=== PATIENT | male | born 1970 | race Caucasian/White ===

== ENCOUNTER 2016-08-26 10:51 | Emergency (ER) | payer OTHER ==
[~2016-08-26] VITALS: Ht 180.3 cm; Wt 104.0 kg
[~2016-08-26 10:51] MED LIST: ADULT LOW DOSE81 M1 PO; BENADRYL ALLERG25 MG PO; EPIPEN ADU0.3 MG/0.3 IM; FLEXERIL10 MG PO; MOBIC7.5 MG PO; NAPROSYN500 MG PO; NEURONTIN600 MG PO; NOHOMEMEDS; NORCO 5/3251 TABLET PO; PEPCID20 MG PO; PERCOCET 5/31 TABLET PO; PREDNISONE10 M1 PO; PREDNISONE10 MG PO; ULTRAM50 MG PO; VICODIN 5-3001 EACH PO
[2016-08-26 11:51] VITALS: BP 176/107
[2016-08-26] MEDS ORDERED: LISINOPRIL10 MG PO (13:45)
[2016-08-26] MEDS ORDERED: MOTRIN800 MG PO (13:46)
== END 2016-08-26 14:09 | disposition home or self-care (01) ==
LOC: EME 10:51
DX: L91.8 Other hypertrophic disorders of the skin (principal)
CPT/HCPCS: 99281; 99284

== ENCOUNTER → 2016-09-02 | Outpatient (CLI) | payer OTHER ==
[~2016-09-02] MED LIST changes: +LISINOPRIL10 MG PO; +MOTRIN800 MG PO
== END | disposition home or self-care (01) ==
LOC: AMB 09:50
PROC: 0HB0XZZ Excision of Scalp Skin, External Approach (ICD-10-PCS; principal; 2016-09-02)
DX: D22.4 Melanocytic nevi of scalp and neck (principal)
CPT/HCPCS: 88305

== ENCOUNTER 2016-12-15 10:42 | Emergency (ER) | payer OTHER ==
[~2016-12-15] VITALS: Ht 167.6 cm; Wt 102.5 kg
[2016-12-15] MEDS ORDERED: MEDROL DOSEPAK4 MG PO (11:24)
[2016-12-15] MEDS ORDERED: ZANTAC150 MG PO (11:24)
[2016-12-15] MEDS ORDERED: BENADRYL25 MG PO (11:24)
[2016-12-15 11:40] VITALS: BP 155/101
== END 2016-12-15 11:41 | disposition home or self-care (01) ==
LOC: EME 10:42
DX: T63.441A Toxic effect of venom of bees, accidental (unintentional), initial encounter (principal); R11.2 Nausea with vomiting, unspecified; I10 Essential (primary) hypertension
CPT/HCPCS: 99281; 99284; J7512

== ENCOUNTER 2017-05-31 15:42 | Emergency (ER) | payer OTHER ==
[~2017-05-31] VITALS: Ht 180.3 cm; Wt 100.9 kg
[~2017-05-31 15:42] MED LIST changes: +BENADRYL25 MG PO; +MEDROL DOSEPAK4 MG PO; +ZANTAC150 MG PO
[2017-05-31 16:37] LABS: HEMATOCRIT 44.4 % (38.0-50.0); MCH 26.9 PG (29.0-34.0); MCHC 33.1 G/DL (30.0-36.0); MCV 81.2 FL (86-99); MEAN PLAT.VOLUME 10.3 uM^3 (9.0-12.4); PLATELET COUNT 215 K/uL (156-360); RBC DIS.WIDTH-CV 12.7 % (11.8-14.6); RBC DIS.WIDTH-SD 37.3 % (39-53); RED BLOOD COUNT 5.47 M/uL (4.00-5.50); WHITE BLOOD COUNT 8.2 K/uL (4.1-10.2)
[2017-05-31 16:45] LABS: D-DIMER ELISA < 150.00 ng/mLDDU (<230)
[2017-05-31 16:52] LABS: CHLORIDE 104 mEq/L (99-109); POTASSIUM 4.2 mEq/L (3.7-5.4); SODIUM 141 mEq/L (136-147)
[2017-05-31 16:55] LABS: GLUCOSE 96 mg/dL (70-99)
[2017-05-31 16:56] LABS: ANION GAP 9 MEQ/L (2-14)
[2017-05-31 16:58] LABS: ALKALINE PHOSPHATASE 93 IU/L (3-129); GFR ESTIMATE (CALCULATED) > 59 mL/min/
[2017-05-31 16:59] LABS: UREA NITROGEN (BUN) 11 mg/dL (9-23)
[2017-05-31 17:01] LABS: LIPASE 21 U/L (1.0-51.0)
[2017-05-31 17:04] LABS: TROP-I INTERPRETATION NEGATIVE; TROPONIN-I < 0.01 ng/mL (0.0-0.30)
[2017-05-31 18:19] VITALS: BP 118/80
== END 2017-05-31 18:20 | disposition home or self-care (01) ==
LOC: EME 15:42
PROVIDERS: Emergency Medicine
DX: R07.9 Chest pain, unspecified (principal); R51 Headache; R11.2 Nausea with vomiting, unspecified; R05 Cough; I10 Essential (primary) hypertension
CPT/HCPCS: 71020; 80048; 80053; 83690; 84484; 85027; 85379; 93005; 99281; 99284